=== PATIENT | female | born 2000 | race African-American/Black ===

== ENCOUNTER 2020-09-12 02:54 | Observation (INO) | payer MEDICAID ==
[2020-09-12 03:44] LABS: BILIRUBIN,URINE NEGATIVE (NEG); CLARITY,URINE CLEAR; COLOR,URINE YELLOW; NITRITE,URINE NEGATIVE (NEG); PH,URINE 7.5 (<5.0-8.0); PROTEIN,URINE NEGATIVE (NEG-TRACE); UROBILINOGEN,URINE 0.2 mg/dL (0.2 mg/dL)
[2020-09-12 03:50] LABS: BARBITURATES NEG (NEG); BENZODIAZEPINES NEG (NEG); CANNABINOIDS POS (NEG); COCAINE NEG (NEG); METHADONE NEG (NEG); OPIATES NEG (NEG); PHENCYCLIDINE NEG (NEG)
[2020-09-12 03:54] LABS: AMPHETAMINE/METHAMPHETAMINE NEG (NEG)
[2020-09-12 03:57] LABS: BACTERIA,URINE FEW /HPF (0-FEW); RBC,URINE OCC /HPF (0-2)
[2020-09-12] MEDS: IV RINGERS,LACTATED 1000ML 1,000 ML IV PRN ×2 (05:11→05:12)
== END 2020-09-12 05:27 | disposition home or self-care (01) ==
LOC: 3 SO LND 02:54
PROVIDERS: ADMIT Obstetrics & Gynecology; ATTEND Obstetrics & Gynecology
DX: O62.9 Abnormality of forces of labor, unspecified (principal); Z3A.36 36 weeks gestation of pregnancy; Z79.899 Other long term (current) drug therapy
CPT/HCPCS: 59025; 80307; 81001; 87086; G0378; G0379; J7120

== ENCOUNTER 2020-09-20 23:49 | Observation (INO) | payer MEDICAID ==
[2020-09-21] MEDS ORDERED: ACETAMINOPHEN 325 MG TABLET. PO PRN
[2020-09-21] MEDS ORDERED: IV RINGERS,LACTATED 1000ML 1,000 ML IV PRN
[2020-09-21 01:04] LABS: BARBITURATES NEG (NEG); BENZODIAZEPINES NEG (NEG); CANNABINOIDS POS (NEG); COCAINE NEG (NEG); METHADONE NEG (NEG); OPIATES NEG (NEG); PHENCYCLIDINE NEG (NEG)
[2020-09-21 01:05] LABS: AMPHETAMINE/METHAMPHETAMINE NEG (NEG)
[2020-09-21 01:14] LABS: BILIRUBIN,URINE NEGATIVE (NEG); CLARITY,URINE CLEAR; COLOR,URINE YELLOW
[2020-09-21 01:15] LABS: NITRITE,URINE NEGATIVE (NEG); PROTEIN,URINE NEGATIVE (NEG-TRACE); UROBILINOGEN,URINE 0.2 mg/dL (0.2 mg/dL)
[2020-09-21 01:16] LABS: BACTERIA,URINE FEW /HPF (0-FEW)
== END 2020-09-21 01:25 | disposition home or self-care (01) ==
LOC: 3 SO LND 23:49
PROVIDERS: ADMIT Obstetrics & Gynecology; ATTEND Obstetrics & Gynecology
DX: O62.9 Abnormality of forces of labor, unspecified (principal); Z3A.27 27 weeks gestation of pregnancy; Z79.899 Other long term (current) drug therapy
CPT/HCPCS: 80307; 81001; 87086; G0378; G0379